=== PATIENT | male | born 1940 | race Caucasian/White ===

== ENCOUNTER 2023-01-03 09:54 | Inpatient (IN) | payer OTHER ==
[~2023-01-03] VITALS: Ht 162.6 cm; Wt 54.4 kg
[2023-01-03] MEDS ORDERED: cefTRIAXone 1 GM IVPB PREMIX 50 ML IV ONE (10:00)
[2023-01-03 10:11] VITALS: BP_SYST 95
[2023-01-03 11:01] LABS: BILIRUBIN,URINE NEGATIVE (NEGATIVE); BLOOD, URINE 3+ (NEGATIVE); COLOR,URINE YELLOW (YELLOW); GLUCOSE,URINE NEGATIVE (NEGATIVE); KETONES,URINE NEGATIVE (NEGATIVE); LEUKOCYTE ESTERASE ,URINE NEGATIVE (NEGATIVE); NITRITE, URINE NEGATIVE (NEGATIVE); PH,URINE 5.5 (5.0-8.0); PROTEIN URINE NEGATIVE (NEGATIVE); UROBILINOGEN,URINE 0.2 (0.2-1.0)
[2023-01-03 11:04] LABS: CLARITY/URINE SLIGHTLY HAZY (CLEAR)
[2023-01-03 11:06] LABS: BASOPHILS % (AUTO) 0.6 % (0.0-2.0); EOSINOPHILS # (AUTO) 0.1 K/uL (0.0-0.4); HEMATOCRIT 37.7 % (36-54); HEMOGLOBIN 12.4 g/dL (14.0-18.0); LYMPHOCYTES # (AUTO) 1.3 K/uL (1.0-5.5); LYMPHOCYTES % (AUTO) 18.7 % (20.5-51.5); MEAN CORPUSCULAR HEMOGLOBIN 32 pg (27-31); MEAN CORPUSCULAR HGB CONC 33 % (32-36); MEAN CORPUSCULAR VOLUME 97 fL (79.0-98.0); MONOCYTES # (AUTO) 0.5 K/uL (0.0-1.0); MONOCYTES % (AUTO) 6.9 % (1.7-9.3); NEUTROPHILS % (AUTO) 72.8 % (40.0-70.0); PLATELET COUNT (AUTO) 159 K/uL (130-430); RED BLOOD CELL COUNT(AUTO) 3.89 MIL/uL (4.2-6.2); RED CELL DISTRIBUTION WIDTH 14.4 % (9.0-15.0); WHITE BLOOD COUNT (AUTO) 6.9 K/uL (4.8-10.8)
[2023-01-03 11:18] LABS: ANION GAP 15 (5-15); CALCIUM 8.6 mg/dL (8.4-11.0); CHLORIDE 104 mmol/L (98-107); CREATININE 1.68 mg/dL (0.55-1.30); GLUCOSE 202 mg/dL (70-99); UREA NITROGEN, BLOOD 34 mg/dL (8-21)
[2023-01-03 11:22] LABS: BACTERIA,URINE FEW /HPF (None Seen); WBC,URINE 0-3 /HPF (0-3)
[2023-01-03] MEDS ORDERED: LEVE500T9 PO (11:32)
[2023-01-03] MEDS ORDERED: FINA5TAB3 PO (11:32)
[2023-01-03] MEDS ORDERED: SYN50 PO (11:32)
[2023-01-03] MEDS ORDERED: VITD2000 PO (11:32)
[2023-01-03] MEDS ORDERED: MAGN400T10 PO (11:32)
[2023-01-03] MEDS ORDERED: TAMS-11 PO (11:32)
[2023-01-03 11:34] LABS: ALANINE AMINOTRANSFERASE 9 U/L (12-78); ALBUMIN 3.2 g/dL (3.4-4.8); ASPARTATE AMINOTRANSFERASE 17 U/L (10-37); TOTAL BILIRUBIN 0.4 mg/dL (0.0-1.0)
[2023-01-03] MEDS ORDERED: NS 1000 ML IV.SOLN IV ONE (11:45)
[2023-01-03 13:35] VITALS: BP_SYST 147
[2023-01-03] MEDS ORDERED: levETIRAcetam 500 MG TABLET PO ONE (15:15)
[2023-01-03] MEDS ORDERED: TAMSULOSIN HCL 0.4 MG CAP PO ONE (15:15)
[2023-01-03] MEDS ORDERED: MEGESTROL ACETATE 400 MG/10 ML UDC PO ONE (15:30)
[2023-01-03] MEDS ORDERED: FINASTERIDE 5 MG TABLET (PROSCAR) PO ONE (15:30)
[2023-01-03] MEDS ORDERED: LEVOTHYROXINE SODIUM 0.05 MG TABLET PO ONE (15:30)
[2023-01-03] MEDS: 0.45% NACL 1,000 ML IV SCH (15:32)
[2023-01-03 16:17] VITALS: BP_SYST 147
[2023-01-03 17:00] VITALS: BP_SYST 134
[2023-01-03 20:00] VITALS: BP_SYST 118
[2023-01-03] MEDS: levETIRAcetam 500 MG TABLET PO SCH (22:09)
[2023-01-03] MEDS: MAGNESIUM OXIDE 400 MG TABLET PO SCH (22:09)
[2023-01-04 00:27] VITALS: BP_SYST 110
[2023-01-04] MEDS: 0.45% NACL 1,000 ML IV SCH ×3 (01:15→21:15)
[2023-01-04] MEDS: LEVOTHYROXINE SODIUM 0.05 MG TABLET PO SCH (06:09)
[2023-01-04 06:32] LABS: BASOPHILS % (AUTO) 0.7 % (0.0-2.0); EOSINOPHILS # (AUTO) 0.2 K/uL (0.0-0.4); EOSINOPHILS % (AUTO) 2.9 % (0.0-4.0); HEMATOCRIT 36.8 % (36-54); HEMOGLOBIN 12.2 g/dL (14.0-18.0); LYMPHOCYTES % (AUTO) 28.3 % (20.5-51.5); MEAN CORPUSCULAR HEMOGLOBIN 32 pg (27-31); MEAN CORPUSCULAR HGB CONC 33 % (32-36); MEAN CORPUSCULAR VOLUME 96 fL (79.0-98.0); MONOCYTES # (AUTO) 0.5 K/uL (0.0-1.0); MONOCYTES % (AUTO) 7.3 % (1.7-9.3); NEUTROPHILS # (AUTO) 4.3 K/uL (1.8-7.7); NEUTROPHILS % (AUTO) 60.8 % (40.0-70.0); PLATELET COUNT (AUTO) 139 K/uL (130-430); RED BLOOD CELL COUNT(AUTO) 3.85 MIL/uL (4.2-6.2); WHITE BLOOD COUNT (AUTO) 7.1 K/uL (4.8-10.8)
[2023-01-04 07:08] LABS: ALANINE AMINOTRANSFERASE 13 U/L (12-78); ALBUMIN 3.2 g/dL (3.4-4.8); ANION GAP 7 (5-15); ASPARTATE AMINOTRANSFERASE 22 U/L (10-37); CALCIUM 8.3 mg/dL (8.4-11.0); CHLORIDE 102 mmol/L (98-107); CREATININE 1.31 mg/dL (0.55-1.30); GLUCOSE 114 mg/dL (70-99); THYROID STIMULATING HORMONE 1.73 uIu/mL (0.34-4.82); TOTAL BILIRUBIN 0.3 mg/dL (0.0-1.0); UREA NITROGEN, BLOOD 31 mg/dL (8-21)
[2023-01-04 08:00] VITALS: BP_SYST 96
[2023-01-04] MEDS: levETIRAcetam 500 MG TABLET PO SCH ×2 (09:50→20:55)
[2023-01-04] MEDS: MAGNESIUM OXIDE 400 MG TABLET PO SCH ×2 (09:51→20:55)
[2023-01-04] MEDS: FINASTERIDE 5 MG TABLET (PROSCAR) PO SCH (09:51)
[2023-01-04] MEDS: TAMSULOSIN HCL 0.4 MG CAP PO SCH (09:51)
[2023-01-04] MEDS: MEGESTROL ACETATE 400 MG/10 ML UDC PO SCH (09:51)
[2023-01-04] MEDS: CHOLECALCIFEROL (VITAMIN D3) 2,000 UNIT TABLET PO SCH (09:51)
[2023-01-04 11:40] VITALS: BP_SYST 104
[2023-01-04 16:00] VITALS: BP_SYST 130
[2023-01-04] MEDS ORDERED: MIRTAZAPINE 15 MG TABLET PO SCH (18:00)
[2023-01-04 20:00] VITALS: BP_SYST 143
[2023-01-05] VITALS (8 sets, daily range): BP systolic 114–154
[2023-01-05 06:07] LABS: BASOPHILS % (AUTO) 0.3 % (0.0-2.0); EOSINOPHILS # (AUTO) 0.1 K/uL (0.0-0.4); EOSINOPHILS % (AUTO) 0.8 % (0.0-4.0); HEMATOCRIT 38.4 % (36-54); HEMOGLOBIN 12.7 g/dL (14.0-18.0); LYMPHOCYTES # (AUTO) 1.7 K/uL (1.0-5.5); LYMPHOCYTES % (AUTO) 13.4 % (20.5-51.5); MEAN CORPUSCULAR HEMOGLOBIN 31 pg (27-31); MEAN CORPUSCULAR HGB CONC 33 % (32-36); MEAN CORPUSCULAR VOLUME 95 fL (79.0-98.0); MONOCYTES # (AUTO) 0.5 K/uL (0.0-1.0); MONOCYTES % (AUTO) 3.6 % (1.7-9.3); NEUTROPHILS # (AUTO) 10.4 K/uL (1.8-7.7); NEUTROPHILS % (AUTO) 81.9 % (40.0-70.0); PLATELET COUNT (AUTO) 134 K/uL (130-430); RED BLOOD CELL COUNT(AUTO) 4.04 MIL/uL (4.2-6.2); WHITE BLOOD COUNT (AUTO) 12.7 K/uL (4.8-10.8)
[2023-01-05 06:16] LABS: ANION GAP 9 (5-15); CALCIUM 8.8 mg/dL (8.4-11.0); CHLORIDE 105 mmol/L (98-107); CREATININE 1.34 mg/dL (0.55-1.30); GLUCOSE 168 mg/dL (70-99); UREA NITROGEN, BLOOD 32 mg/dL (8-21)
[2023-01-05] MEDS: LEVOTHYROXINE SODIUM 0.05 MG TABLET PO SCH (06:36)
[2023-01-05] MEDS: 0.45% NACL 1,000 ML IV SCH (07:15)
[2023-01-05] MEDS: CHOLECALCIFEROL (VITAMIN D3) 2,000 UNIT TABLET PO SCH (09:00)
[2023-01-05] MEDS: levETIRAcetam 500 MG TABLET PO SCH (09:00)
[2023-01-05] MEDS: TAMSULOSIN HCL 0.4 MG CAP PO SCH (09:00)
[2023-01-05] MEDS: FINASTERIDE 5 MG TABLET (PROSCAR) PO SCH (09:00)
[2023-01-05] MEDS: MEGESTROL ACETATE 400 MG/10 ML UDC PO SCH (09:00)
[2023-01-05] MEDS: IPRATROPIUM/ALBUTEROL SULFATE 3 ML AMPUL.NEB (DUONEB) INH SCH (13:24)
[2023-01-05] MEDS: ACETYLCYSTEINE 20% 4 ML VIAL (RT) INH SCH (13:25)
[2023-01-05] MEDS: MAGNESIUM OXIDE 400 MG TABLET PO SCH ×2 (13:43→21:00)
[2023-01-05] MEDS: cefTRIAXone 1 GM in D5W 50 ML IV SCH (15:12)
[2023-01-05] MEDS: D5/0.45 NS 1,000 ML IV SCH (17:30)
[2023-01-05] MEDS ORDERED: DEXAMETHASONE SOD PHOSPHATE 4 MG/ML VIAL IVP ONE ×2 (17:45→20:00)
[2023-01-05] MEDS ORDERED: BUDESONIDE 0.5 MG/2 ML AMPUL.NEB INH ONE (18:00)
[2023-01-05] MEDS: AZITHROMYCIN 500 MG in NS 250 ML IV SCH (19:21)
[2023-01-05] MEDS: levETIRAcetam 500 MG in NS 100 ML IV SCH (21:15)
[2023-01-06 01:03] VITALS: BP_SYST 119
[2023-01-06] MEDS: IPRATROPIUM/ALBUTEROL SULFATE 3 ML AMPUL.NEB (DUONEB) INH SCH ×5 (01:44→19:52)
[2023-01-06] MEDS: BUDESONIDE 0.5 MG/2 ML AMPUL.NEB INH SCH ×3 (01:46→20:06)
[2023-01-06] MEDS: ACETYLCYSTEINE 20% 4 ML VIAL (RT) INH SCH ×4 (01:47→19:52)
[2023-01-06 05:22] LABS: BASOPHILS % (AUTO) 0.1 % (0.0-2.0); HEMATOCRIT 36.2 % (36-54); LYMPHOCYTES # (AUTO) 0.5 K/uL (1.0-5.5); LYMPHOCYTES % (AUTO) 4.9 % (20.5-51.5); MEAN CORPUSCULAR HEMOGLOBIN 32 pg (27-31); MEAN CORPUSCULAR HGB CONC 33 % (32-36); MEAN CORPUSCULAR VOLUME 95 fL (79.0-98.0); MONOCYTES # (AUTO) 0.2 K/uL (0.0-1.0); MONOCYTES % (AUTO) 1.8 % (1.7-9.3); NEUTROPHILS # (AUTO) 9.5 K/uL (1.8-7.7); NEUTROPHILS % (AUTO) 93.2 % (40.0-70.0); PLATELET COUNT (AUTO) 115 K/uL (130-430); RED BLOOD CELL COUNT(AUTO) 3.79 MIL/uL (4.2-6.2); RED CELL DISTRIBUTION WIDTH 14.1 % (9.0-15.0); WHITE BLOOD COUNT (AUTO) 10.2 K/uL (4.8-10.8)
[2023-01-06 05:58] LABS: ALANINE AMINOTRANSFERASE 9 U/L (12-78); ALBUMIN 2.5 g/dL (3.4-4.8); ANION GAP 11 (5-15); ASPARTATE AMINOTRANSFERASE 18 U/L (10-37); CALCIUM 8.4 mg/dL (8.4-11.0); CHLORIDE 105 mmol/L (98-107); CREATININE 1.56 mg/dL (0.55-1.30); GLUCOSE 204 mg/dL (70-99); TOTAL BILIRUBIN 0.4 mg/dL (0.0-1.0); UREA NITROGEN, BLOOD 38 mg/dL (8-21)
[2023-01-06] MEDS: LEVOTHYROXINE SODIUM 0.05 MG TABLET PO SCH (06:32)
[2023-01-06] MEDS: D5/0.45 NS 1,000 ML IV SCH (07:03)
[2023-01-06 08:00] VITALS: BP_SYST 98
[2023-01-06] MEDS: TAMSULOSIN HCL 0.4 MG CAP PO SCH (09:00)
[2023-01-06] MEDS: MAGNESIUM OXIDE 400 MG TABLET PO SCH ×2 (09:00→21:39)
[2023-01-06] MEDS: CHOLECALCIFEROL (VITAMIN D3) 2,000 UNIT TABLET PO SCH (09:00)
[2023-01-06] MEDS: FINASTERIDE 5 MG TABLET (PROSCAR) PO SCH (09:00)
[2023-01-06] MEDS: MEGESTROL ACETATE 400 MG/10 ML UDC PO SCH (09:00)
[2023-01-06] MEDS: levETIRAcetam 500 MG in NS 100 ML IV SCH ×2 (09:36→21:42)
[2023-01-06 11:40] VITALS: BP_SYST 108
[2023-01-06] MEDS: cefTRIAXone 1 GM in D5W 50 ML IV SCH (12:43)
[2023-01-06 16:28] VITALS: BP_SYST 107
[2023-01-06] MEDS: AZITHROMYCIN 500 MG in NS 250 ML IV SCH (17:27)
[2023-01-06] MEDS ORDERED: ASPIRIN 81 MG TABLET(ECOTRIN) PO ONE (19:00)
[2023-01-06 22:37] VITALS: BP_SYST 137
[2023-01-07] MEDS: ACETYLCYSTEINE 20% 4 ML VIAL (RT) INH SCH ×4 (00:47→20:00)
[2023-01-07] MEDS: IPRATROPIUM/ALBUTEROL SULFATE 3 ML AMPUL.NEB (DUONEB) INH SCH ×4 (00:47→20:00)
[2023-01-07 04:57] LABS: BASOPHILS % (AUTO) 0.1 % (0.0-2.0); EOSINOPHILS % (AUTO) 0.2 % (0.0-4.0); HEMATOCRIT 35.3 % (36-54); HEMOGLOBIN 11.8 g/dL (14.0-18.0); LYMPHOCYTES # (AUTO) 0.8 K/uL (1.0-5.5); LYMPHOCYTES % (AUTO) 7.8 % (20.5-51.5); MEAN CORPUSCULAR HEMOGLOBIN 32 pg (27-31); MEAN CORPUSCULAR HGB CONC 33 % (32-36); MEAN CORPUSCULAR VOLUME 95 fL (79.0-98.0); MONOCYTES # (AUTO) 0.5 K/uL (0.0-1.0); NEUTROPHILS # (AUTO) 8.9 K/uL (1.8-7.7); NEUTROPHILS % (AUTO) 86.9 % (40.0-70.0); PLATELET COUNT (AUTO) 143 K/uL (130-430); RED BLOOD CELL COUNT(AUTO) 3.71 MIL/uL (4.2-6.2); RED CELL DISTRIBUTION WIDTH 14.5 % (9.0-15.0); WHITE BLOOD COUNT (AUTO) 10.3 K/uL (4.8-10.8)
[2023-01-07 05:21] LABS: ANION GAP 11 (5-15); CALCIUM 8.3 mg/dL (8.4-11.0); CHLORIDE 102 mmol/L (98-107); CREATININE 1.46 mg/dL (0.55-1.30); GLUCOSE 224 mg/dL (70-99); UREA NITROGEN, BLOOD 38 mg/dL (8-21)
[2023-01-07] MEDS: LEVOTHYROXINE SODIUM 0.05 MG TABLET PO SCH (06:04)
[2023-01-07] MEDS: BUDESONIDE 0.5 MG/2 ML AMPUL.NEB INH SCH (07:12)
[2023-01-07 07:40] VITALS: BP_SYST 106
[2023-01-07] MEDS: CHOLECALCIFEROL (VITAMIN D3) 2,000 UNIT TABLET PO SCH (09:13)
[2023-01-07] MEDS: FINASTERIDE 5 MG TABLET (PROSCAR) PO SCH (09:13)
[2023-01-07] MEDS: ASPIRIN 81 MG TABLET(ECOTRIN) PO SCH (09:14)
[2023-01-07] MEDS: TAMSULOSIN HCL 0.4 MG CAP PO SCH (09:14)
[2023-01-07] MEDS: MAGNESIUM OXIDE 400 MG TABLET PO SCH ×2 (09:15→21:01)
[2023-01-07] MEDS: MEGESTROL ACETATE 400 MG/10 ML UDC PO SCH (09:15)
[2023-01-07] MEDS: levETIRAcetam 500 MG in NS 100 ML IV SCH ×2 (10:55→21:02)
[2023-01-07] MEDS: cefTRIAXone 1 GM in D5W 50 ML IV SCH (12:41)
[2023-01-07 13:32] VITALS: BP_SYST 92
[2023-01-07 17:27] VITALS: BP_SYST 112
[2023-01-07] MEDS: AZITHROMYCIN 500 MG in NS 250 ML IV SCH (19:35)
[2023-01-07 20:00] VITALS: BP_SYST 108
[2023-01-07 20:30] VITALS: BP_SYST 103
[2023-01-08 00:15] VITALS: BP_SYST 110
[2023-01-08] MEDS: IPRATROPIUM/ALBUTEROL SULFATE 3 ML AMPUL.NEB (DUONEB) INH SCH ×4 (01:00→19:46)
[2023-01-08] MEDS: ACETYLCYSTEINE 20% 4 ML VIAL (RT) INH SCH ×4 (01:00→19:47)
[2023-01-08] MEDS: BUDESONIDE 0.5 MG/2 ML AMPUL.NEB INH SCH ×3 (03:06→19:47)
[2023-01-08] MEDS: LEVOTHYROXINE SODIUM 0.05 MG TABLET PO SCH (06:44)
[2023-01-08 07:57] LABS: BASOPHILS % (AUTO) 0.3 % (0.0-2.0); EOSINOPHILS # (AUTO) 0.2 K/uL (0.0-0.4); EOSINOPHILS % (AUTO) 2.5 % (0.0-4.0); HEMATOCRIT 40.2 % (36-54); HEMOGLOBIN 13.3 g/dL (14.0-18.0); LYMPHOCYTES # (AUTO) 1.7 K/uL (1.0-5.5); LYMPHOCYTES % (AUTO) 18.3 % (20.5-51.5); MEAN CORPUSCULAR HEMOGLOBIN 31 pg (27-31); MEAN CORPUSCULAR HGB CONC 33 % (32-36); MEAN CORPUSCULAR VOLUME 95 fL (79.0-98.0); MONOCYTES # (AUTO) 0.6 K/uL (0.0-1.0); MONOCYTES % (AUTO) 6.7 % (1.7-9.3); NEUTROPHILS # (AUTO) 6.7 K/uL (1.8-7.7); NEUTROPHILS % (AUTO) 72.2 % (40.0-70.0); PLATELET COUNT (AUTO) 176 K/uL (130-430); RED BLOOD CELL COUNT(AUTO) 4.26 MIL/uL (4.2-6.2); WHITE BLOOD COUNT (AUTO) 9.3 K/uL (4.8-10.8)
[2023-01-08 08:00] VITALS: BP_SYST 142
[2023-01-08 08:29] LABS: ANION GAP 6 (5-15); CHLORIDE 102 mmol/L (98-107); CREATININE 1.19 mg/dL (0.55-1.30); GLUCOSE 183 mg/dL (70-99); UREA NITROGEN, BLOOD 31 mg/dL (8-21)
[2023-01-08] MEDS: TAMSULOSIN HCL 0.4 MG CAP PO SCH (09:51)
[2023-01-08] MEDS: ASPIRIN 81 MG TABLET(ECOTRIN) PO SCH (09:51)
[2023-01-08] MEDS: FINASTERIDE 5 MG TABLET (PROSCAR) PO SCH (09:51)
[2023-01-08] MEDS: MEGESTROL ACETATE 400 MG/10 ML UDC PO SCH (09:51)
[2023-01-08] MEDS: CHOLECALCIFEROL (VITAMIN D3) 2,000 UNIT TABLET PO SCH (09:51)
[2023-01-08] MEDS: MAGNESIUM OXIDE 400 MG TABLET PO SCH ×2 (09:52→22:14)
[2023-01-08] MEDS: levETIRAcetam 500 MG in NS 100 ML IV SCH ×2 (09:52→20:54)
[2023-01-08 11:49] VITALS: BP_SYST 118
[2023-01-08] MEDS: cefTRIAXone 1 GM in D5W 50 ML IV SCH (13:17)
[2023-01-08] MEDS ORDERED: ONDANSETRON HCL 4 MG/2 ML VIAL IVP PRN (15:00)
[2023-01-08 16:00] VITALS: BP_SYST 121
[2023-01-08] MEDS: D5LR 1,000 ML IV SCH (18:18)
[2023-01-08] MEDS: AZITHROMYCIN 500 MG in NS 250 ML IV SCH (18:19)
[2023-01-08 20:12] VITALS: BP_SYST 140
[2023-01-09 01:37] VITALS: BP_SYST 119
[2023-01-09] MEDS: IPRATROPIUM/ALBUTEROL SULFATE 3 ML AMPUL.NEB (DUONEB) INH SCH ×4 (01:38→20:11)
[2023-01-09] MEDS: ACETYLCYSTEINE 20% 4 ML VIAL (RT) INH SCH ×4 (01:39→20:12)
[2023-01-09] MEDS: LEVOTHYROXINE SODIUM 0.05 MG TABLET PO SCH (06:52)
[2023-01-09 08:00] VITALS: BP_SYST 115
[2023-01-09] MEDS: BUDESONIDE 0.5 MG/2 ML AMPUL.NEB INH SCH ×2 (08:32→20:13)
[2023-01-09] MEDS: D5LR 1,000 ML IV SCH (09:34)
[2023-01-09] MEDS: levETIRAcetam 500 MG in NS 100 ML IV SCH ×2 (09:36→21:18)
[2023-01-09] MEDS: MEGESTROL ACETATE 400 MG/10 ML UDC PO SCH (09:40)
[2023-01-09] MEDS: ASPIRIN 81 MG TABLET(ECOTRIN) PO SCH (09:40)
[2023-01-09] MEDS: FINASTERIDE 5 MG TABLET (PROSCAR) PO SCH (09:40)
[2023-01-09] MEDS: CHOLECALCIFEROL (VITAMIN D3) 2,000 UNIT TABLET PO SCH (09:41)
[2023-01-09] MEDS: TAMSULOSIN HCL 0.4 MG CAP PO SCH (09:42)
[2023-01-09] MEDS: MAGNESIUM OXIDE 400 MG TABLET PO SCH ×2 (09:42→20:21)
[2023-01-09 11:50] VITALS: BP_SYST 92
[2023-01-09] MEDS: cefTRIAXone 1 GM in D5W 50 ML IV SCH (13:26)
[2023-01-09 15:55] VITALS: BP_SYST 103
[2023-01-09 20:00] VITALS: BP_SYST 125
[2023-01-09] MEDS: AZITHROMYCIN 500 MG in NS 250 ML IV SCH (20:03)
[2023-01-09] MEDS: LORazepam 2 MG/ML VIAL IVP PRN (20:33)
[2023-01-10] VITALS: BP_SYST 125
[2023-01-10] MEDS: IPRATROPIUM/ALBUTEROL SULFATE 3 ML AMPUL.NEB (DUONEB) INH SCH ×4 (01:03→19:00)
[2023-01-10] MEDS: ACETYLCYSTEINE 20% 4 ML VIAL (RT) INH SCH ×4 (01:04→19:00)
[2023-01-10] MEDS: D5LR 1,000 ML IV SCH ×2 (02:43→16:50)
[2023-01-10] MEDS: LEVOTHYROXINE SODIUM 0.05 MG TABLET PO SCH (06:05)
[2023-01-10 07:38] LABS: BASOPHILS % (AUTO) 0.2 % (0.0-2.0); EOSINOPHILS # (AUTO) 0.3 K/uL (0.0-0.4); EOSINOPHILS % (AUTO) 2.7 % (0.0-4.0); HEMATOCRIT 36.9 % (36-54); LYMPHOCYTES % (AUTO) 10.8 % (20.5-51.5); MEAN CORPUSCULAR HEMOGLOBIN 31 pg (27-31); MEAN CORPUSCULAR HGB CONC 33 % (32-36); MEAN CORPUSCULAR VOLUME 95 fL (79.0-98.0); MONOCYTES # (AUTO) 0.7 K/uL (0.0-1.0); MONOCYTES % (AUTO) 7.6 % (1.7-9.3); NEUTROPHILS # (AUTO) 7.6 K/uL (1.8-7.7); NEUTROPHILS % (AUTO) 78.7 % (40.0-70.0); PLATELET COUNT (AUTO) 196 K/uL (130-430); RED BLOOD CELL COUNT(AUTO) 3.87 MIL/uL (4.2-6.2); RED CELL DISTRIBUTION WIDTH 13.9 % (9.0-15.0); WHITE BLOOD COUNT (AUTO) 9.6 K/uL (4.8-10.8)
[2023-01-10 07:50] LABS: ALANINE AMINOTRANSFERASE 9 U/L (12-78); ALBUMIN 2.2 g/dL (3.4-4.8); ANION GAP 5 (5-15); ASPARTATE AMINOTRANSFERASE 16 U/L (10-37); CALCIUM 8.8 mg/dL (8.4-11.0); CHLORIDE 104 mmol/L (98-107); CREATININE 1.12 mg/dL (0.55-1.30); GLUCOSE 159 mg/dL (70-99); TOTAL BILIRUBIN 0.4 mg/dL (0.0-1.0); UREA NITROGEN, BLOOD 18 mg/dL (8-21)
[2023-01-10] MEDS: BUDESONIDE 0.5 MG/2 ML AMPUL.NEB INH SCH ×2 (07:56→21:00)
[2023-01-10 08:00] VITALS: BP_SYST 121
[2023-01-10] MEDS: TAMSULOSIN HCL 0.4 MG CAP PO SCH (09:00)
[2023-01-10] MEDS: levETIRAcetam 500 MG in NS 100 ML IV SCH ×2 (09:00→21:08)
[2023-01-10] MEDS: FINASTERIDE 5 MG TABLET (PROSCAR) PO SCH (09:00)
[2023-01-10] MEDS: ASPIRIN 81 MG TABLET(ECOTRIN) PO SCH (09:00)
[2023-01-10] MEDS: MAGNESIUM OXIDE 400 MG TABLET PO SCH ×2 (09:00→21:00)
[2023-01-10] MEDS: CHOLECALCIFEROL (VITAMIN D3) 2,000 UNIT TABLET PO SCH (09:00)
[2023-01-10] MEDS: MEGESTROL ACETATE 400 MG/10 ML UDC PO SCH (09:00)
[2023-01-10 11:41] VITALS: BP_SYST 122
[2023-01-10] MEDS: cefTRIAXone 1 GM in D5W 50 ML IV SCH (13:02)
[2023-01-10] MEDS ORDERED: DEXTROSE 50% JECT 50 ML DISP.SYRIN IVP PRN (14:00)
[2023-01-10] MEDS ORDERED: *PPN PER PHARMACY XX PRN (14:00)
[2023-01-10 16:17] VITALS: BP_SYST 108
[2023-01-10] MEDS: INSULIN REGULAR, HUMAN 100 UNITS/ML, 3 ML VIAL (humuLIN R) SUBCUT PRN (17:11)
[2023-01-10 20:00] VITALS: BP_SYST 126
[2023-01-11] MEDS: D5LR 1,000 ML IV SCH ×3 (00:28→18:30)
[2023-01-11 01:01] VITALS: BP_SYST 134
[2023-01-11] MEDS: LORazepam 2 MG/ML VIAL IVP PRN (02:30)
[2023-01-11] MEDS: IPRATROPIUM/ALBUTEROL SULFATE 3 ML AMPUL.NEB (DUONEB) INH SCH ×4 (02:56→19:52)
[2023-01-11] MEDS: ACETYLCYSTEINE 20% 4 ML VIAL (RT) INH SCH ×4 (02:57→19:53)
[2023-01-11] MEDS: LEVOTHYROXINE SODIUM 0.05 MG TABLET PO SCH (06:10)
[2023-01-11 07:38] LABS: ALANINE AMINOTRANSFERASE 17 U/L (12-78); ALBUMIN 2.4 g/dL (3.4-4.8); ANION GAP 11 (5-15); ASPARTATE AMINOTRANSFERASE 22 U/L (10-37); CALCIUM 8.9 mg/dL (8.4-11.0); CHLORIDE 103 mmol/L (98-107); CREATININE 1.12 mg/dL (0.55-1.30); GLUCOSE 134 mg/dL (70-99); PHOSPHORUS 3.1 mg/dL (2.7-4.5); TOTAL BILIRUBIN 0.4 mg/dL (0.0-1.0); TRIGLYCERIDES 57 mg/dL (30-150); UREA NITROGEN, BLOOD 16 mg/dL (8-21)
[2023-01-11 08:00] VITALS: BP_SYST 129
[2023-01-11 08:10] VITALS: BP_SYST 129
[2023-01-11] MEDS: BUDESONIDE 0.5 MG/2 ML AMPUL.NEB INH SCH ×2 (08:22→19:53)
[2023-01-11] MEDS: MEGESTROL ACETATE 400 MG/10 ML UDC PO SCH (09:00)
[2023-01-11] MEDS: ASPIRIN 81 MG TABLET(ECOTRIN) PO SCH (09:00)
[2023-01-11] MEDS: MAGNESIUM OXIDE 400 MG TABLET PO SCH ×2 (09:00→21:00)
[2023-01-11] MEDS: CHOLECALCIFEROL (VITAMIN D3) 2,000 UNIT TABLET PO SCH (09:00)
[2023-01-11] MEDS: FINASTERIDE 5 MG TABLET (PROSCAR) PO SCH (09:00)
[2023-01-11] MEDS: TAMSULOSIN HCL 0.4 MG CAP PO SCH (09:00)
[2023-01-11] MEDS: levETIRAcetam 500 MG in NS 100 ML IV SCH ×2 (09:44→20:16)
[2023-01-11] MEDS: cefTRIAXone 1 GM in D5W 50 ML IV SCH (12:06)
[2023-01-11 12:46] VITALS: BP_SYST 107
[2023-01-11] MEDS: INSULIN REGULAR, HUMAN 100 UNITS/ML, 3 ML VIAL (humuLIN R) SUBCUT PRN (13:27)
[2023-01-11] MEDS ORDERED: MAGNESIUM SULFATE/D5W 100 ML IV ONE (15:30)
[2023-01-11 16:28] VITALS: BP_SYST 110
[2023-01-11 20:00] VITALS: BP_SYST 154
[2023-01-11] MEDS: FAT EMULSIONS 250 ML IV SCH (21:00)
[2023-01-11] MEDS ORDERED: TPN PERIPHERAL IV SCH ×7 (21:00)
[2023-01-11] MEDS ORDERED: MVI IV SCH ×7 (21:00)
[2023-01-11] MEDS ORDERED: [UNRECOGNIZED DRUG - OTHER] IV SCH ×7 (21:00)
[2023-01-11] MEDS ORDERED: SODIUM ACETATE IV SCH ×7 (21:00)
[2023-01-11] MEDS ORDERED: MAGNESIUM SULFATE IV SCH ×7 (21:00)
[2023-01-12] MEDS: D5LR 1,000 ML IV SCH ×2 (00:42→21:00)
[2023-01-12 01:23] VITALS: BP_SYST 125; BP_SYST 142
[2023-01-12] MEDS: IPRATROPIUM/ALBUTEROL SULFATE 3 ML AMPUL.NEB (DUONEB) INH SCH ×4 (01:42→20:14)
[2023-01-12] MEDS: ACETYLCYSTEINE 20% 4 ML VIAL (RT) INH SCH ×4 (01:42→20:14)
[2023-01-12] MEDS: LEVOTHYROXINE SODIUM 0.05 MG TABLET PO SCH (06:19)
[2023-01-12 06:59] LABS: ALANINE AMINOTRANSFERASE 16 U/L (12-78); ALBUMIN 2.2 g/dL (3.4-4.8); ANION GAP 10 (5-15); ASPARTATE AMINOTRANSFERASE 19 U/L (10-37); CALCIUM 8.5 mg/dL (8.4-11.0); CHLORIDE 101 mmol/L (98-107); CREATININE 1.12 mg/dL (0.55-1.30); GLUCOSE 192 mg/dL (70-99); PHOSPHORUS 2.9 mg/dL (2.7-4.5); TOTAL BILIRUBIN 0.4 mg/dL (0.0-1.0); UREA NITROGEN, BLOOD 17 mg/dL (8-21)
[2023-01-12] MEDS ORDERED: CEFAZOLIN 1 GM IVPB PREMIX 50 ML IV ONE ×2 (08:00→21:15)
[2023-01-12 08:05] VITALS: BP_SYST 142
[2023-01-12] MEDS: BUDESONIDE 0.5 MG/2 ML AMPUL.NEB INH SCH ×2 (08:46→20:14)
[2023-01-12] MEDS: levETIRAcetam 500 MG in NS 100 ML IV SCH ×2 (10:13→21:23)
[2023-01-12] MEDS: ASPIRIN 81 MG TABLET(ECOTRIN) PO SCH (10:15)
[2023-01-12] MEDS: TAMSULOSIN HCL 0.4 MG CAP PO SCH (10:15)
[2023-01-12] MEDS: MAGNESIUM OXIDE 400 MG TABLET PO SCH ×2 (10:16→21:00)
[2023-01-12] MEDS: CHOLECALCIFEROL (VITAMIN D3) 2,000 UNIT TABLET PO SCH (10:16)
[2023-01-12] MEDS: MEGESTROL ACETATE 400 MG/10 ML UDC PO SCH (10:16)
[2023-01-12] MEDS: FINASTERIDE 5 MG TABLET (PROSCAR) PO SCH (10:16)
[2023-01-12 11:43] VITALS: BP_SYST 116
[2023-01-12] MEDS: INSULIN REGULAR, HUMAN 100 UNITS/ML, 3 ML VIAL (humuLIN R) SUBCUT PRN ×2 (15:14→22:33)
[2023-01-12 17:01] VITALS: BP_SYST 110
[2023-01-12] MEDS ORDERED: TPN PERIPHERAL 0.0001 ML, SODIUM ACETATE 40 MEQ, POTASSIUM CHLORIDE 20 MEQ, K PHOS 6 MM... IV SCH ×9 (21:00)
[2023-01-12] MEDS: FAT EMULSIONS 250 ML IV SCH (21:12)
[2023-01-12] MEDS ORDERED: ceFAZolin SODIUM 1 GM VIAL ONE (21:43)
[2023-01-13] MEDS: IPRATROPIUM/ALBUTEROL SULFATE 3 ML AMPUL.NEB (DUONEB) INH SCH ×4 (01:50→23:26)
[2023-01-13] MEDS: ACETYLCYSTEINE 20% 4 ML VIAL (RT) INH SCH ×4 (01:50→23:26)
[2023-01-13 01:51] VITALS: BP_SYST 128
[2023-01-13] MEDS: D5LR 1,000 ML IV SCH (03:30)
[2023-01-13] MEDS: LEVOTHYROXINE SODIUM 0.05 MG TABLET PO SCH (06:45)
[2023-01-13] MEDS ORDERED: ceFAZolin SODIUM 2 GM in D5W 100 ML IV ONE (07:00)
[2023-01-13 07:02] LABS: BASOPHILS % (AUTO) 0.2 % (0.0-2.0); EOSINOPHILS # (AUTO) 0.2 K/uL (0.0-0.4); EOSINOPHILS % (AUTO) 1.2 % (0.0-4.0); HEMATOCRIT 38.1 % (36-54); HEMOGLOBIN 12.4 g/dL (14.0-18.0); LYMPHOCYTES # (AUTO) 1.3 K/uL (1.0-5.5); LYMPHOCYTES % (AUTO) 9.7 % (20.5-51.5); MEAN CORPUSCULAR HEMOGLOBIN 31 pg (27-31); MEAN CORPUSCULAR HGB CONC 33 % (32-36); MEAN CORPUSCULAR VOLUME 94 fL (79.0-98.0); MONOCYTES # (AUTO) 0.7 K/uL (0.0-1.0); MONOCYTES % (AUTO) 4.8 % (1.7-9.3); NEUTROPHILS # (AUTO) 11.6 K/uL (1.8-7.7); NEUTROPHILS % (AUTO) 84.1 % (40.0-70.0); PLATELET COUNT (AUTO) 309 K/uL (130-430); RED BLOOD CELL COUNT(AUTO) 4.06 MIL/uL (4.2-6.2); RED CELL DISTRIBUTION WIDTH 14.1 % (9.0-15.0); WHITE BLOOD COUNT (AUTO) 13.7 K/uL (4.8-10.8)
[2023-01-13] MEDS ORDERED: SIMETHICONE 40 MG/0.6 ML ML ONE (07:05)
[2023-01-13] MEDS ORDERED: MIDAZOLAM HCL 5 MG/5 ML VIAL ONE (07:06)
[2023-01-13] MEDS ORDERED: fentaNYL CITRATE/PF 100 MCG/2 ML AMP ONE (07:06)
[2023-01-13] MEDS ORDERED: CEFAZOLIN 1 GM IVPB PREMIX 50 ML IV ONE (07:08)
[2023-01-13 07:16] LABS: INR 1.1 (0.80-1.20); PROTHROMBIN TIME 11.6 SECS (9.5-12.5)
[2023-01-13 07:31] LABS: ALANINE AMINOTRANSFERASE 19 U/L (12-78); ALBUMIN 2.3 g/dL (3.4-4.8); ANION GAP 10 (5-15); ASPARTATE AMINOTRANSFERASE 21 U/L (10-37); CALCIUM 8.5 mg/dL (8.4-11.0); CHLORIDE 101 mmol/L (98-107); CREATININE 1.24 mg/dL (0.55-1.30); GLUCOSE 145 mg/dL (70-99); PHOSPHORUS 3.1 mg/dL (2.7-4.5); TOTAL BILIRUBIN 0.3 mg/dL (0.0-1.0); UREA NITROGEN, BLOOD 19 mg/dL (8-21)
[2023-01-13 08:00] VITALS: BP_SYST 118
[2023-01-13] MEDS: MEGESTROL ACETATE 400 MG/10 ML UDC PO SCH (09:00)
[2023-01-13] MEDS: MAGNESIUM OXIDE 400 MG TABLET PO SCH ×2 (09:29→22:22)
[2023-01-13] MEDS: levETIRAcetam 500 MG in NS 100 ML IV SCH ×2 (09:29→22:25)
[2023-01-13] MEDS: FINASTERIDE 5 MG TABLET (PROSCAR) PO SCH (09:29)
[2023-01-13] MEDS: TAMSULOSIN HCL 0.4 MG CAP PO SCH (09:29)
[2023-01-13] MEDS: CHOLECALCIFEROL (VITAMIN D3) 2,000 UNIT TABLET PO SCH (09:29)
[2023-01-13] MEDS: ASPIRIN 81 MG TABLET(ECOTRIN) PO SCH (09:29)
[2023-01-13] MEDS: BUDESONIDE 0.5 MG/2 ML AMPUL.NEB INH SCH ×2 (11:23→23:27)
[2023-01-13 11:25] VITALS: BP_SYST 90
[2023-01-13 16:58] VITALS: BP_SYST 123
[2023-01-13 20:30] VITALS: BP_SYST 137
[2023-01-13] MEDS ORDERED: POTASSIUM CHLORIDE IV SCH ×9 (21:00)
[2023-01-13] MEDS ORDERED: SODIUM ACETATE IV SCH ×9 (21:00)
[2023-01-13] MEDS ORDERED: TPN PERIPHERAL IV SCH ×9 (21:00)
[2023-01-13] MEDS ORDERED: [UNRECOGNIZED DRUG - OTHER] IV SCH ×9 (21:00)
[2023-01-13] MEDS: FAT EMULSIONS 250 ML IV SCH (22:24)
[2023-01-14] VITALS: BP_SYST 132
[2023-01-14] MEDS: IPRATROPIUM/ALBUTEROL SULFATE 3 ML AMPUL.NEB (DUONEB) INH SCH ×4 (03:22→20:02)
[2023-01-14] MEDS: ACETYLCYSTEINE 20% 4 ML VIAL (RT) INH SCH ×4 (03:22→20:02)
[2023-01-14] MEDS: LEVOTHYROXINE SODIUM 0.05 MG TABLET PO SCH (06:16)
[2023-01-14] MEDS: INSULIN REGULAR, HUMAN 100 UNITS/ML, 3 ML VIAL (humuLIN R) SUBCUT PRN ×3 (06:27→14:39)
[2023-01-14 08:20] LABS: BASOPHILS # (AUTO) 0.1 K/uL (0.0-0.2); BASOPHILS % (AUTO) 0.9 % (0.0-2.0); EOSINOPHILS # (AUTO) 0.1 K/uL (0.0-0.4); HEMATOCRIT 36.7 % (36-54); HEMOGLOBIN 12.1 g/dL (14.0-18.0); LYMPHOCYTES % (AUTO) 13.6 % (20.5-51.5); MEAN CORPUSCULAR HEMOGLOBIN 31 pg (27-31); MEAN CORPUSCULAR HGB CONC 33 % (32-36); MEAN CORPUSCULAR VOLUME 93 fL (79.0-98.0); MONOCYTES # (AUTO) 0.6 K/uL (0.0-1.0); MONOCYTES % (AUTO) 4.3 % (1.7-9.3); NEUTROPHILS # (AUTO) 11.8 K/uL (1.8-7.7); NEUTROPHILS % (AUTO) 80.2 % (40.0-70.0); PLATELET COUNT (AUTO) 279 K/uL (130-430); RED BLOOD CELL COUNT(AUTO) 3.94 MIL/uL (4.2-6.2); WHITE BLOOD COUNT (AUTO) 14.7 K/uL (4.8-10.8)
[2023-01-14 08:29] LABS: ALANINE AMINOTRANSFERASE 13 U/L (12-78); ALBUMIN 2.1 g/dL (3.4-4.8); ANION GAP 8 (5-15); ASPARTATE AMINOTRANSFERASE 25 U/L (10-37); CHLORIDE 103 mmol/L (98-107); CREATININE 1.24 mg/dL (0.55-1.30); GLUCOSE 170 mg/dL (70-99); PHOSPHORUS 2.7 mg/dL (2.7-4.5); TOTAL BILIRUBIN 0.3 mg/dL (0.0-1.0); UREA NITROGEN, BLOOD 23 mg/dL (8-21)
[2023-01-14] MEDS: MEGESTROL ACETATE 400 MG/10 ML UDC PO SCH (09:00)
[2023-01-14] MEDS: BUDESONIDE 0.5 MG/2 ML AMPUL.NEB INH SCH (09:35)
[2023-01-14] MEDS: MAGNESIUM OXIDE 400 MG TABLET PO SCH ×2 (09:39→20:35)
[2023-01-14] MEDS: CHOLECALCIFEROL (VITAMIN D3) 2,000 UNIT TABLET PO SCH (09:39)
[2023-01-14] MEDS: FINASTERIDE 5 MG TABLET (PROSCAR) PO SCH (09:39)
[2023-01-14] MEDS: TAMSULOSIN HCL 0.4 MG CAP PO SCH (09:40)
[2023-01-14] MEDS: ASPIRIN 81 MG TABLET(ECOTRIN) PO SCH (09:40)
[2023-01-14] MEDS: levETIRAcetam 500 MG in NS 100 ML IV SCH (09:48)
[2023-01-14 10:26] VITALS: BP_SYST 132
[2023-01-14 12:00] VITALS: BP_SYST 110
[2023-01-14 16:00] VITALS: BP_SYST 118
[2023-01-14 20:00] VITALS: BP_SYST 102
[2023-01-14] MEDS: LevETIRAcetam 500 MG/5 ML UDC ORAL LIQUID GT SCH (20:35)
[2023-01-14] MEDS: D5LR 1,000 ML IV SCH (20:36)
[2023-01-14] MEDS ORDERED: [UNRECOGNIZED DRUG - OTHER] IV SCH ×9 (21:00)
[2023-01-14] MEDS ORDERED: SODIUM ACETATE IV SCH ×9 (21:00)
[2023-01-14] MEDS ORDERED: TPN PERIPHERAL IV SCH ×9 (21:00)
[2023-01-14] MEDS ORDERED: POTASSIUM CHLORIDE IV SCH ×9 (21:00)
[2023-01-15] MEDS: BUDESONIDE 0.5 MG/2 ML AMPUL.NEB INH SCH ×2 (00:28→07:07)
[2023-01-15 00:45] VITALS: BP_SYST 102
[2023-01-15 01:35] VITALS: BP_SYST 97
[2023-01-15] MEDS: IPRATROPIUM/ALBUTEROL SULFATE 3 ML AMPUL.NEB (DUONEB) INH SCH ×4 (03:52→19:59)
[2023-01-15] MEDS: ACETYLCYSTEINE 20% 4 ML VIAL (RT) INH SCH ×4 (03:53→20:10)
[2023-01-15] MEDS: INSULIN REGULAR, HUMAN 100 UNITS/ML, 3 ML VIAL (humuLIN R) SUBCUT PRN ×2 (05:10→12:10)
[2023-01-15] MEDS: LEVOTHYROXINE SODIUM 0.05 MG TABLET PO SCH (06:31)
[2023-01-15 07:11] LABS: BASOPHILS # (AUTO) 0.1 K/uL (0.0-0.2); BASOPHILS % (AUTO) 0.4 % (0.0-2.0); EOSINOPHILS # (AUTO) 0.2 K/uL (0.0-0.4); EOSINOPHILS % (AUTO) 1.3 % (0.0-4.0); HEMATOCRIT 35.1 % (36-54); HEMOGLOBIN 11.6 g/dL (14.0-18.0); LYMPHOCYTES # (AUTO) 1.5 K/uL (1.0-5.5); LYMPHOCYTES % (AUTO) 10.2 % (20.5-51.5); MEAN CORPUSCULAR HEMOGLOBIN 31 pg (27-31); MEAN CORPUSCULAR HGB CONC 33 % (32-36); MEAN CORPUSCULAR VOLUME 93 fL (79.0-98.0); MONOCYTES # (AUTO) 0.7 K/uL (0.0-1.0); MONOCYTES % (AUTO) 5.1 % (1.7-9.3); PLATELET COUNT (AUTO) 303 K/uL (130-430); RED BLOOD CELL COUNT(AUTO) 3.76 MIL/uL (4.2-6.2); RED CELL DISTRIBUTION WIDTH 14.2 % (9.0-15.0); WHITE BLOOD COUNT (AUTO) 14.4 K/uL (4.8-10.8)
[2023-01-15 07:40] LABS: ALANINE AMINOTRANSFERASE 16 U/L (12-78); ALBUMIN 2.1 g/dL (3.4-4.8); ANION GAP 9 (5-15); ASPARTATE AMINOTRANSFERASE 22 U/L (10-37); CALCIUM 7.9 mg/dL (8.4-11.0); CHLORIDE 104 mmol/L (98-107); CREATININE 1.22 mg/dL (0.55-1.30); GLUCOSE 151 mg/dL (70-99); TOTAL BILIRUBIN 0.2 mg/dL (0.0-1.0); UREA NITROGEN, BLOOD 27 mg/dL (8-21)
[2023-01-15 08:00] VITALS: BP_SYST 121
[2023-01-15] MEDS: LevETIRAcetam 500 MG/5 ML UDC ORAL LIQUID GT SCH (08:52)
[2023-01-15] MEDS: MEGESTROL ACETATE 400 MG/10 ML UDC PO SCH (08:52)
[2023-01-15] MEDS: ASPIRIN 81 MG TABLET(ECOTRIN) PO SCH (08:53)
[2023-01-15] MEDS: TAMSULOSIN HCL 0.4 MG CAP PO SCH (08:53)
[2023-01-15] MEDS: FINASTERIDE 5 MG TABLET (PROSCAR) PO SCH (08:53)
[2023-01-15] MEDS: CHOLECALCIFEROL (VITAMIN D3) 2,000 UNIT TABLET PO SCH (08:53)
[2023-01-15] MEDS: MAGNESIUM OXIDE 400 MG TABLET PO SCH (08:54)
[2023-01-15 11:47] VITALS: BP_SYST 132
[2023-01-15 16:30] VITALS: BP_SYST 139
[2023-01-15 17:34] VITALS: BP_SYST 132
== END 2023-01-15 20:42 | DRG 640 ==
LOC: SED 09:54 → STU 12:15 → SMU 01-13 16:21
PROVIDERS: ADMIT Internal Medicine; ATTEND Internal Medicine
PROC: 4A10X4Z Monitoring of Central Nervous Electrical Activity, External Approach (ICD-10-PCS; 2023-01-07)
PROC: 0DH68UZ Insertion of Feeding Device into Stomach, Via Natural or Artificial Opening Endoscopic (ICD-10-PCS; principal; 2023-01-13 07:30)
DX: E86.0 Dehydration (principal); G92.8 Other toxic encephalopathy; N17.0 Acute kidney failure with tubular necrosis; J96.00 Acute respiratory failure, unspecified whether with hypoxia or hypercapnia; R65.11 Systemic inflammatory response syndrome (SIRS) of non-infectious origin with acute organ dysfunction; G91.9 Hydrocephalus, unspecified; E44.0 Moderate protein-calorie malnutrition; N39.0 Urinary tract infection, site not specified; R13.10 Dysphagia, unspecified; G40.909 Epilepsy, unspecified, not intractable, without status epilepticus; D64.9 Anemia, unspecified; Z68.20 Body mass index [BMI] 20.0-20.9, adult; J20.9 Acute bronchitis, unspecified; F01.50 Vascular dementia, unspecified severity, without behavioral disturbance, psychotic disturbance, mood disturbance, and anxiety; Z20.822 Contact with and (suspected) exposure to COVID-19; E03.9 Hypothyroidism, unspecified; Z86.73 Personal history of transient ischemic attack (TIA), and cerebral infarction without residual deficits; Z98.2 Presence of cerebrospinal fluid drainage device
CPT/HCPCS: 36415; 36600; 43246; 70450-TC; 71045; 76376; 80048; 80053; 81000; 82140; 82803; 82962; 83605; 83735; 83880; 84100; 84439; 84443; 84478; 84484; 85025; 85610-TC; 85730-TC; 87040; 87081; 87086; 92610-GN; 93005; 93880; 94640; 94760; 95816; 96361; 96365; 97110-GP; 97112-GP; 97116-GP; 97163-GP; 97530-GP; 99285; G0378; J0456; J0690; J0696; J1100; J1815; J1953; J2060; J2250; J2405; J3010; J3475; J3480; J7030; J7050; J7060; J7120; J7608; J7626